=== PATIENT | female | born 1940 | race Caucasian/White ===

== ENCOUNTER 2017-01-01 18:53 | Inpatient (IN) | payer MEDICARE, OTHER ==
[~2017-01-01] VITALS: Ht 154.9 cm; Wt 89.2 kg
[~2017-01-01 18:53] MED LIST: ATEN-51; CRES10
[2017-01-01] MEDS ORDERED: ASPIRIN 325 MG TAB PO STA (18:55)
--- NOTE | 2017-01-01 19:36 | RADRPT ---
PROCEDURE: XR Chest. CLINICAL INDICATION: Weakness. Shortness of breath. TECHNIQUE: Single frontal view. COMPARISON: 11/19/2014. FINDINGS: The lungs are clear. The heart is enlarged. There is calcification in the aorta consistent with atherosclerosis. There is no pleural effusion. There is no pneumothorax. IMPRESSION: 1. Cardiomegaly and atherosclerosis. 2. Clear lungs. RPTAT: QQ .Beck Valdez MD, MD Date Time Electronically viewed and signed by .Beck Valdez MD, on 01/01/2017 19:36 .R/
[2017-01-01 19:38] LABS: BASOPHILS % 0.4 % (0.0-2.0); EOSINOPHILS # 0.1 10^3/ul (0.0-0.5); EOSINOPHILS % 0.9 % (0.0-7.0); HEMATOCRIT 35.3 % (37.0-47.0); HEMOGLOBIN 11.9 g/dl (12.0-16.0); LYMPHOCYTES # 1.8 10^3/ul (0.8-2.9); LYMPHOCYTES % 20.5 % (15.0-51.0); MEAN CORPUSCULAR HEMOGLOBIN 30.2 pg (29.0-33.0); MEAN CORPUSCULAR HGB CONC 33.7 g/dl (32.0-37.0); MEAN CORPUSCULAR VOLUME 89.6 fl (82.0-101.0); MEAN PLATELET VOLUME 10.5 fl (7.4-10.4); MONOCYTE # 0.8 10^3/ul (0.3-0.9); MONOCYTES % 8.4 % (0.0-11.0); NEUTROPHIL # 6.2 10^3/ul (1.6-7.5); NEUTROPHILS % 69.5 % (39.0-77.0); PLATELET COUNT 224 10^3/UL (140-415); RED BLOOD COUNT 3.94 10^6/ul (4.20-5.40); WHITE BLOOD COUNT 8.9 10^3/ul (4.8-10.8)
--- NOTE | 2017-01-01 19:43 | RADRPT ---
PROCEDURE: CT Brain without contrast. CLINICAL INDICATION: Right-sided weakness. TECHNIQUE: A CT of the brain without contrast was performed utilizing axial sections from the skul l base through the vertex. The patient was scanned without intravenous contrast enhancement. Sagitta l and coronal reformatted images were obtained using the data from the axial images. Total exam DLP is 720.23 mGy-cm. CTDIvol is 43.05 mGy. One or more of the following dose reduction techniques we re used: Automated exposure control, adjustment of the mA and/or kV according to patient size, use o f iterative reconstruction technique. COMPARISON: 11/19/2014. FINDINGS: There is normal crum-white matter differentiation. There is mild enlargement of the ventricles and subarachnoid spaces consistent with atrophy. There is a chronic left cerebral convexity subdural hematoma measuring 9.6 x 1.6 x 9.1 cm in AP, tra nsverse, and craniocaudal dimensions. There are regions of acute hemorrhage within the chronic low attenuation fluid. There are multiple regions of septation. There is midline shift to the right me asuring 0.7 cm. The basal cisterns are intact. There is no skull fracture or lytic lesion. IMPRESSION: 1. Mild atrophy. 2. Chronic left cerebral convexity subdural hematoma measuring 9.6 x 1.6 x 9.1 cm in AP, transverse , and craniocaudal dimensions. Small regions of acute hemorrhage are present within the chronic flu id. Multiple septations are also present. 3. Midline shift to the right measuring 0.7 cm. Call report: A call report of the findings was made to Dr. Macdonald on 01/01/2017 at 1940 hours. RPTAT: QQ .Beck Valdez MD, MD Date Time Electronically viewed and signed by .Beck Valdez MD, on 01/01/2017 19:42 .R/
[2017-01-01] MEDS ORDERED: ERGO500037 PO (19:51)
[2017-01-01 19:53] LABS: INR 0.94; PARTIAL THROMBOPLASTIN TIME 24.2 Sec (25.0-35.0); PROTIME 12.6 Sec (12.2-14.2)
[2017-01-01] MEDS ORDERED: SIMV40TA2 PO (19:53)
[2017-01-01] MEDS ORDERED: DONE10TA7 PO (19:53)
[2017-01-01] MEDS ORDERED: OXCA300T41 PO (19:54)
[2017-01-01] MEDS ORDERED: OXCA600T30 PO (19:54)
[2017-01-01] MEDS ORDERED: CALC-516 PO (19:55)
[2017-01-01] MEDS ORDERED: VALS160T20 PO (19:56)
[2017-01-01] MEDS ORDERED: ESCI5TAB10 PO (19:56)
[2017-01-01 20:02] LABS: ANION GAP 11 (8-16); BLOOD UREA NITROGEN 19 mg/dl (7-20); CALCIUM 9.3 mg/dl (8.4-10.2); CARBON DIOXIDE 29 mmol/L (21-31); CHLORIDE 101 mmol/L (97-110); CREATININE 0.87 mg/dl (0.44-1.00); GLUCOSE 96 mg/dl (70-220); POTASSIUM 4.3 mmol/L (3.5-5.1); SODIUM 137 mmol/L (135-144)
[2017-01-01 20:16] LABS: TROPONIN-I < 0.012 ng/ml (0.00-0.12)
[2017-01-01 20:47] VITALS: TEMP 97.8
--- NOTE | 2017-01-01 21:07 | ERA ---
ER Documentation Chief Complaint Date/Time DATE: 01/01/17 TIME: 21:04 Chief Complaint right arm weak, slightly slurred speech, dragging feet since yesterday HPI Patient is a 76-year-old female with previous stroke and hypertension who presents with weakness of the right arm. The patient was brought in by ambulance. She could not lift her right arm yesterday while eating. Today the weakness was worse. She had a fall on November 17 and had a subdural hemorrhage at that time. She has no pain. The family does say that she has slurred speech. She had no new falls. She does have difficulty walking. She does not take blood thinning medicines at this time. Her last meal was at 1 PM. ROS All systems reviewed and are negative except as per history of present illness. Medications Home Meds Reported Medications Escitalopram Oxalate* (Escitalopram Oxalate*) 5 Mg Tablet, 5 MG PO DAILY, #30 TAB 01/01/17 Valsartan* (Diovan*) 160 Mg Tablet, 160 MG PO DAILY, TAB 01/01/17 Calcium Carbonate/Vitamin D3 ([place] SHE[place] CALCIUM TABLET) 1 Each Tablet, 1 EACH PO BID, TAB 01/01/17 Oxcarbazepine* (Oxcarbazepine*) 600 Mg Tablet, 600 MG PO BID, TAB 01/01/17 Oxcarbazepine* (Oxcarbazepine*) 300 Mg Tablet, 300 MG PO PRN Y for NEEDED, TAB 01/01/17 Donepezil* (Donepezil*) 10 Mg Tablet, 10 MG PO DAILY, #30 TAB 01/01/17 Simvastatin* (Zocor*) 40 Mg Tablet, 40 MG PO DAILY, #30 TAB 01/01/17 Ergocalciferol (Vitamin D2) (VITAMIN D2) 50,000 Unit Capsule, 90744 UNIT PO Q30D , CAP 01/01/17 Discontinued Reported Medications Rosuvastatin Calcium* (Crestor*) 10 Mg Tablet 05/07/10 Atenolol* (Atenolol*) 25 Mg Tablet 05/07/10 Allergies Allergies: Coded Allergies: No Known Drug Allergy (Verified Allergy, Mild, 01/01/17) PMhx/Soc History of Surgery: Yes (hernia) Anesthesia Reaction: No Hx Neurological Disorder: Yes (epilepsy, seizure) Hx Respiratory Disorders: No Hx Cardiac Disorders: Yes (HYPERTENSION, HIGH CHOLESTEROL, ) Hx Psychiatric Problems: No Hx Miscellaneous Medical Probl: No Hx Alcohol Use: No Hx Substance Use: No Hx Tobacco Use: No Smoking Status: Never smoker FmHx Family History: No diabetes Physical Exam Vitals Vital Signs Date Time Temp Pulse Resp B/P Pulse Ox O2 Delivery O2 Flow Rate FiO2 01/01/17 20:47 97.8 55 20 165/75 98 Room Air 01/01/17 19:05 98.2 59 18 182/77 96 Physical Exam Const: No acute distress Head: Atraumatic Eyes: Normal Conjunctiva ENT: Normal External Ears, Nose and Mouth. Neck: Full range of motion..~ No meningismus. Resp: Clear to auscultation bilaterally Cardio: Regular rate and rhythm, no murmurs Abd: Soft, non tender, non distended. Normal bowel sounds Skin: No petechiae or rashes Back: No midline or flank tenderness Ext: No cyanosis, or edema Neur: Awake and alert, weakness of the right upper extremity when compared to the left, bilateral lower extremity equal in strength Psych: Normal Mood and Affect Result Diagram: 01/01/17192301/01/171923 Results 24 hrs Laboratory Tests Test 01/01/17 19:24 01/01/17 19:41 White Blood Count 8.910^3/ul Red Blood Count 3.9410^6/ul Hemoglobin 11.9g/dl Hematocrit 35.3% Mean Corpuscular Volume 89.6fl Mean Corpuscular Hemoglobin 30.2pg Mean Corpuscular Hemoglobin Concent 33.7g/dl Red Cell Distribution Width 13.0% Platelet Count 72538^3/UL Mean Platelet Volume 10.5fl Neutrophils % 69.5% Lymphocytes % 20.5% Monocytes % 8.4% Eosinophils % 0.9% Basophils % 0.4% Nucleated Red Blood Cells % 0.0/100WBC Neutrophils # 6.210^3/ul Lymphocytes # 1.810^3/ul Monocytes # 0.810^3/ul Eosinophils # 0.110^3/ul Basophils # 0.010^3/ul Nucleated Red Blood Cells # 0.010^3/ul Prothrombin Time 12.6Sec Prothrombin Time Ratio 1.0 INR International Normalized Ratio 0.94 Activated Partial Thromboplast Time 24.2Sec Sodium Level 137mmol/L Potassium Level 4.3mmol/L Chloride Level 101mmol/L Carbon Dioxide Level 29mmol/L Anion Gap 11 Blood Urea Nitrogen 19mg/dl Creatinine 0.87mg/dl Glucose Level 96mg/dl Hemoglobin A1c 5.6% Calcium Level 9.3mg/dl Troponin I < 0.012ng/ml Bedside Glucose 93mg/dL Current Medications Medications (Trade) Dose Ordered Sig/Aminata Route PRN Reason Start Time Stop Time Status Last Admin Dose Admin Aspirin (Aspirin) 325 mg ONCE STAT PO 01/01/17 18:55 01/01/17 19:40 DC Procedures/MDM EKG read by me: Rate/Rhythm: Regular rate and rhythm at a normal rate Intervals: Normal Impression: No evidence of ischemia or arrhythmia CT brain shows large acute on chronic left-sided subdural hemorrhage with mass- effect in 0.7 cm of midline shift per radiology. Patient is a 76-year-old female with acute on chronic subdural hemorrhage who presents with weakness. I believe her weakness is secondary to the mass-effect and midline shift due to the subdural hemorrhage. I spoke with Dr. Giraldo from neurosurgery who will take the patient to the operating room tonight. The patient will be admitted to the care of Dr. Taylor from the panel team to the intensive care unit. Correlation studies appear normal. At this point I doubt ischemic stroke or brain mass. Critical Care: Time: 35 minutes excluding all billable procedures. Treatments/Evaluations: Close monitoring and treatment of unstable vital signs, cardiorespiratory, and neurologic status, while maintaining tight balance of fluid, respiratory, and cardiac interventions. Departure Diagnosis: Primary Impression: SDH (subdural hematoma) Additional Impression: Acute weakness Condition: Critical JOHN PRICE MD Jan 01, 2017 21:06
[2017-01-01] MEDS ORDERED: THROMBIN 5000 UNIT VIAL ONE (21:11)
[2017-01-01] MEDS ORDERED: GELATIN SIZE 100 SPONGE ONE (21:11)
[2017-01-01] MEDS ORDERED: BUPIVACAINE 0.5% (SDV) 30 ML INJ ONE (21:20)
[2017-01-01] MEDS ORDERED: LIDOCAINE 2%/EPI 30 ML INJ ONE (21:23)
[2017-01-01] MEDS ORDERED: FENTAnyl 50 MCG/ML VIAL IV PRN ×3 (21:30)
[2017-01-01] MEDS ORDERED: MEPERIDINE 25 MG INJ IV PRN (21:30)
[2017-01-01] MEDS ORDERED: DEXAMETHASONE 4 MG/ML 1 ML INJ ONE (21:30)
[2017-01-01] MEDS ORDERED: HYDROmorphONE (0.2 MG/ML) 10ML SYG IV PRN ×3 (21:30)
[2017-01-01] MEDS ORDERED: ROCURONIUM 50 MG INJ ONE (21:30)
[2017-01-01] MEDS ORDERED: MIDAZOLAM 1 MG/ML 2 ML INJ IV PRN (21:30)
[2017-01-01] MEDS ORDERED: ONDANSETRON 4 MG INJ ONE (21:30)
[2017-01-01] MEDS ORDERED: ONDANSETRON 4 MG INJ IV PRN (21:30)
[2017-01-01] MEDS ORDERED: FENTAnyl 250MCG INJ ONE (21:30)
[2017-01-01] MEDS ORDERED: OXYCODONE/ACETAMINOPHEN (5/325) TAB PO PRN ×2 (21:30)
[2017-01-01] MEDS ORDERED: TRIMETHOBENZAMIDE 100 MG/ML VIAL IM PRN (21:30)
[2017-01-01] MEDS ORDERED: EPHEDrine SULFATE 50 MG/5 ML SYG ONE (21:30)
[2017-01-01] MEDS ORDERED: MIDAZOLAM 1 MG/ML 2 ML INJ ONE (21:30)
[2017-01-01] MEDS ORDERED: SUGAMMADEX SODIUM 200 MG/2 ML VIAL IV ONE (21:30)
[2017-01-01] MEDS ORDERED: DIPHENHYDRAMINE 50 MG INJ IV PRN (21:30)
[2017-01-01] MEDS ORDERED: LABETALOL HCL 20MG INJ IV PRN (21:30)
[2017-01-01] MEDS ORDERED: PROPOFOL 200 MG INJ ONE (21:30)
[2017-01-01] MEDS ORDERED: hydrALAzine 20 MG INJ IV PRN (21:30)
[2017-01-01] MEDS ORDERED: EPHEDrine SULFATE 50 MG/5 ML SYG IV PRN (21:30)
[2017-01-01] MEDS ORDERED: CEFAZOLIN 1 GM INJ ONE (21:30)
[2017-01-01] MEDS: SOD CHLORIDE 0.9% 1,000 ML IV SCH (21:49)
[2017-01-01] MEDS ORDERED: ACETAMINOPHEN 650MG/20.3ML CUP PO PRN (22:00)
[2017-01-01] MEDS ORDERED: ACETAMINOPHEN 650 MG SUPP PR PRN (22:00)
[2017-01-01] MEDS ORDERED: HYDROmorphONE 1 MG/ML SYG IV PRN (22:00)
--- NOTE | 2017-01-01 22:21 | HP ---
Date/Time of Note Date/Time of Note DATE: 01/01/17 TIME: 22:18 Assessment/Plan VTE Prophylaxis VTE Prophylaxis Intervention: SCD's Assessment/Plan Chief Complaint/Hosp Course This is a 68-year-old female being admitted to the ICU floor for: 1: acute on chronic subural hematoma:CT scan shows c: Hronic left cerebral convexity subdural hematoma measuring 9.6 x 1.6 x 9.1 cm in AP, transverse, and craniocaudal dimensions. Small regions of acute hemorrhage are present within the chronic fluid. Multiple septations are also present. Midline shift to the right measuring 0.7 cm. At the current time based on the patient's CT scan as well as her physical examination neurosurgery was consulted. Neurosurgery will be coming in for a surgical intervention.. Current time keep the patient n.p.o. #2 hypertension: At the current time we will keep the patient's blood pressure when in the 140s-160 systolic range await further recommendations from neurosurgery regarding blood pressure management. #3 Alzheimer's: Continue donepezil #4 depression: Continue SSRI #5 DVT GI prophylaxis: SCDs, Protonix Further treatment strategy will be implemented as per the clinical course Greater than 40 minutes was spent on the history and physical and assessment and plan this patient Problems: HPI/ROS Admit Date/Time Admit Date/Time Hx of Present Illness chief complaint: right sided weakness, slurred speech Patient is a 76-year-old female with previous stroke and hypertension who presents with weakness of the right arm. The patient was brought in by ambulance. She could not lift her right arm yesterday while eating. Today the weakness was worse. She had a fall on November 17 and had a subdural hemorrhage at that time. She has no pain. The family does say that she has slurred speech. She had no new falls. She does have difficulty walking. She does not take blood thinning medicines at this time. Allergies: NKDA Medications: See YUMIKO CAGE Const: As per HPI Eyes : No pain discharge or redness or change in visual acuity ENT: No pain, sore throat, congestion, congestion, dysphagia or discharge Respiratory: No shortness of breath, cough, sputum, wheezing, or pleuritic pain Cardiovascular: No chest pain, palpitation, PND, or edema GI : no change in appetite, abdominal pain, nausea, vomiting, diarrhea, constipation, or change in the color his stool Genitourinary: No dysuria, hematuria, flank pain , discharge or CVA tenderness Musculoskeletal: As per HPI Skin: No rash, bruising or hives Neuro: As per HPI Endocrine: No polyuria, polydipsia, temperature intolerance Psych: No hallucination, depression, anxiety or suicidal ideation PMH/Family/Social Past Medical History htn, hematoma, petite mal seizures, Past Surgical History heart monitor/loop recorder?, hernia repair Family History Significant Family History: cancer (pancreatic CA: mom, Liver CA: dad) Social History Alcohol Use: none Smoking Status: Never smoker Drug Use: none Exam/Review of Systems Vital Signs Vitals Vital Signs Date Time Temp Pulse Resp B/P Pulse Ox O2 Delivery O2 Flow Rate FiO2 01/01/17 20:47 97.8 55 20 165/75 98 Room Air Exam Exam General: Patient is lying in bed in no acute distress HEENT: Atraumatic, normocephalic. The pupils are equal, round and reactive. Extraocular motor are intact Neck: Supple with full range of motion. No rigidity or meningismus Chest: Nontender Lungs: Clear to auscultation bilaterally no crackles rales or wheezing Heart: Normal S1-S2, Regular rhythm and rate. No murmur, S3, or S4 Abdomen: Soft , nontender, nondistended , bowel sounds are present. No guarding no rebound tenderness , No masses or organomegaly. No costovertebral temporal angle mass Extremities: Weakness of the right upper extremity when compared to the left, equals strength bilateral lower extremities Neurologic: Normal mental status, mild slurring of speech, cranial nerves II through XII are intact, motor and sensory are intact, no focal weakness Additional Comments PROCEDURE: CT Brain without contrast. CLINICAL INDICATION: Right-sided weakness. TECHNIQUE: A CT of the brain without contrast was performed utilizing axial sections from the skull base through the vertex. The patient was scanned without intravenous contrast enhancement. Sagittal and coronal reformatted images were obtained using the data from the axial images. Total exam DLP is 720.23 mGy-cm. CTDIvol is 43.05 mGy. One or more of the following dose reduction techniques were used: Automated exposure control, adjustment of the mA and/or kV according to patient size, use of iterative reconstruction technique. COMPARISON: 11/19/2014. FINDINGS: There is normal crum-white matter differentiation. There is mild enlargement of the ventricles and subarachnoid spaces consistent with atrophy. There is a chronic left cerebral convexity subdural hematoma measuring 9.6 x 1.6 x 9.1 cm in AP, transverse, and craniocaudal dimensions. There are regions of acute hemorrhage within the chronic low attenuation fluid. There are multiple regions of septation. There is midline shift to the right measuring 0.7 cm. The basal cisterns are intact. There is no skull fracture or lytic lesion. IMPRESSION: 1. Mild atrophy. 2. Chronic left cerebral convexity subdural hematoma measuring 9.6 x 1.6 x 9.1 cm in AP, transverse, and craniocaudal dimensions. Small regions of acute hemorrhage are present within the chronic fluid. Multiple septations are also present. 3. Midline shift to the right measuring 0.7 cm. Call report: A call report of the findings was made to Dr. Macdonald on 2016 at 1940 hours. RPTAT: QQ .Beck Valdez MD, MD Date Time Electronically viewed and signed by .Beck Valdez MD, on 01/01/2017 19:42 PROCEDURE: XR Chest. CLINICAL INDICATION: Weakness. Shortness of breath. TECHNIQUE: Single frontal view. COMPARISON: 11/19/2014. FINDINGS: The lungs are clear. The heart is enlarged. There is calcification in the aorta consistent with atherosclerosis. There is no pleural effusion. There is no pneumothorax. IMPRESSION: 1. Cardiomegaly and atherosclerosis. 2. Clear lungs. RPTAT: QQ .Beck Valdez MD, MD Date Time Electronically viewed and signed by .Beck Valdez MD, MD on 01/01/2017 19:36 Labs Result Diagram: 01/01/17192301/01/171923 Medications Medications Current Medications Sodium Chloride (NS) 1,000 ml @ 80 mls/hr [id number] IV ; Start 01/01/17 at 21:49 Acetaminophen (Tylenol Liquid) 650 mg Q6H PRN PO PAIN LEVEL 1-3 OR FEVER; Start 01/01/17 at 22:00 Acetaminophen (Tylenol Supp) 650 mg Q4H PRN [place] PAIN LEVEL 1-3 OR FEVER; Start 01/01/17 at 22:00 Hydromorphone HCl (Dilaudid) 0.5 mg Q4H PRN IV PAIN LEVEL 7-10; Start 01/01/17 at 22:00 Pantoprazole (Protonix Iv) 40 mg DAILY@06 IV ; Start 01/02/17 at 06:00 FIDEL BAKER Jan 01, 2017 22:21
[2017-01-01] MEDS ORDERED: BUPIVACAINE 0.5%/EPI (SDV) 10 ML INJ ONE (22:24)
[2017-01-01] MEDS ORDERED: POLYMYXIN/BACITRACIN 1L IRRIG ONE (22:48)
[2017-01-01] MEDS ORDERED: LEVETIRACETAM 500 MG (PMX) 100 ML IVPB ONE (23:00)
[2017-01-01] MEDS ORDERED: BACITRACIN/POLYMYXIN 28.35 GM OINT TOP ONE (23:19)
[2017-01-02] VITALS (36 sets, daily range): BP systolic 65–165; BP diastolic 47–92; PULSE 52–89; RESP 14–29; Ht 154.9 cm; Wt 89.2 kg
[2017-01-02] MEDS ORDERED: HYDROmorphONE 1 MG/ML SYG IV PRN
[2017-01-02] MEDS ORDERED: MEPERIDINE 25 MG INJ IV PRN
[2017-01-02] MEDS ORDERED: MIDAZOLAM 1 MG/ML 2 ML INJ IV PRN
[2017-01-02] MEDS ORDERED: FENTAnyl 50 MCG/ML VIAL IV PRN ×3
[2017-01-02] MEDS ORDERED: DIPHENHYDRAMINE 50 MG INJ IV PRN
[2017-01-02] MEDS ORDERED: TRIMETHOBENZAMIDE 100 MG/ML VIAL IM PRN
[2017-01-02] MEDS ORDERED: LABETALOL HCL 20MG INJ IV PRN
[2017-01-02] MEDS ORDERED: NALOXONE (0.4 MG/ML) INJ IV PRN
[2017-01-02] MEDS ORDERED: ONDANSETRON 4 MG INJ IV PRN ×2
[2017-01-02] MEDS ORDERED: EPHEDrine SULFATE 50 MG/5 ML SYG IV PRN
--- NOTE | 2017-01-02 00:06 | OPR ---
Date/Time of Note Date/Time of Note DATE: 01/02/17 TIME: 00:04 Operative Report Preoperative Diagnosis left frontoparietal acute on chronic SDH Postoperative Diagnosis Same As Above Operation/Procedure Performed Left Frontal and parietal burhole craniectomies for evacuation of subdural hematoma Surgeon: LAURA CONDE MD Anesthesia: general Estimated Blood Loss: 10 - 50 ml's Specimens None Grafts/Implants None Complications: None LAURA CONDE MD Jan 02, 2017 00:06
[2017-01-02] MEDS ORDERED: POLYMYXIN/BACITRACIN 1L IRRIG ONE (00:20)
[2017-01-02] MEDS: hydrALAzine 20 MG INJ IV PRN (00:28)
--- NOTE | 2017-01-02 01:02 | RADRPT ---
PROCEDURE: CT brain without contrast. CLINICAL INDICATION: Intracranial hemorrhage, follow-up. TECHNIQUE: CT scan of the brain was performed on a multi-detector high-resolution CT scanner. Co ntiguous axial images were obtained from the skull base to the vertex without intravenous contrast. Coronal and sagittal reformatted images were also obtained. Images were reviewed on the PACS works tation. One or more of the following dose reduction techniques were used: - Automated exposure control. - Adjustment of the mA and/or kV according to patient size. - Use of iterative reconstruction technique. Exam CTD/vol = 45.01 mGy. Total exam DLP = 810.25 mGy-cm. COMPARISON: 01/01/2017. FINDINGS: There is interval two left-sided adela holes and placement of a subdural drain through the left poste rior frontal adela hole extending to the left tentorium. There is partial evacuation of left-sided s ubdural hematoma with residual mild extra-axial hemorrhage, fluid and air along the left cerebral he misphere which now measures up to 8 mm in thickness. There is decreased mass effect and mild midline shift to the right which now measures 4 mm. The ventricles and cortical sulci are prominent consist ent with mild age related volume loss. There are patchy areas of low attenuation within the periven tricular and subcortical white matter consistent with mild chronic ischemic changes secondary to sma ll vessel disease. There are atherosclerotic calcifications within bilateral distal internal caroti d arteries. Visualized paranasal sinuses and mastoid air cells are clear. IMPRESSION: Interval two left frontal adela holes and placement of subdural drain. There is partial evacuation of left-sided subdural hematoma with mild residual hemorrhage, fluid and air. There is decreased mass effect and mild midline shift to the right which now measures 4 mm. Mild age related volume loss and chronic ischemic white matter disease. Cerebral atherosclerosis. .Bridger Carmona MD, Date Time Electronically viewed and signed by .Bridger Carmona MD, MD on 01/02/2017 01:01 .T/
[2017-01-02 01:15] LABS: CALCIUM 9.1 mg/dl (8.4-10.2); CREATININE 0.72 mg/dl (0.44-1.00); POTASSIUM 3.7 mmol/L (3.5-5.1)
[2017-01-02] MEDS: D5-NS + KCL 20 MEQ 1,000 ML IV SCH ×3 (01:20→19:55)
[2017-01-02] MEDS: CEFAZOLIN 1 GM/50 ML (PMX) 50 ML IVPB SCH ×3 (01:20→16:06)
[2017-01-02] MEDS: HYDROCODONE/APAP (5/325) TAB PO PRN ×2 (04:59→12:52)
[2017-01-02] MEDS: PANTOPRAZOLE 40 MG INJ IV SCH (05:04)
[2017-01-02 05:57] LABS: ABNORMAL IP MESSAGE 1; BASOPHILS % 0.2 % (0.0-2.0); HEMATOCRIT 34.6 % (37.0-47.0); HEMOGLOBIN 11.3 g/dl (12.0-16.0); LYMPHOCYTES # 0.6 10^3/ul (0.8-2.9); LYMPHOCYTES % 5.4 % (15.0-51.0); MEAN CORPUSCULAR HEMOGLOBIN 29.5 pg (29.0-33.0); MEAN CORPUSCULAR HGB CONC 32.7 g/dl (32.0-37.0); MEAN CORPUSCULAR VOLUME 90.3 fl (82.0-101.0); MEAN PLATELET VOLUME 11.3 fl (7.4-10.4); MONOCYTE # 0.2 10^3/ul (0.3-0.9); MONOCYTES % 2.1 % (0.0-11.0); NEUTROPHIL # 9.9 10^3/ul (1.6-7.5); NEUTROPHILS % 91.7 % (39.0-77.0); PLATELET COUNT 204 10^3/UL (140-415); RED BLOOD COUNT 3.83 10^6/ul (4.20-5.40); RED CELL DISTRIBUTION WIDTH 13.2 % (11.5-14.5); WHITE BLOOD COUNT 10.8 10^3/ul (4.8-10.8)
[2017-01-02] MEDS ORDERED: PANTOPRAZOLE 40 MG INJ IV SCH (06:00)
[2017-01-02 06:55] LABS: ALBUMIN 3.7 g/dl (3.3-4.9); ALBUMIN/GLOBULIN RATIO 1.6; CALCIUM 8.5 mg/dl (8.4-10.2); CREATININE 0.7 mg/dl (0.44-1.00); POTASSIUM 3.9 mmol/L (3.5-5.1)
[2017-01-02 07:44] LABS: ADD SCAN DIFF NO
[2017-01-02] MEDS: LEVETIRACETAM 500 MG (PMX) 100 ML IVPB SCH ×2 (08:55→21:42)
[2017-01-02] MEDS: NEOMYC/POLYMYX/BACIT 30 GM OINT TOP SCH ×2 (08:56→21:43)
[2017-01-02] MEDS: OXCARBAZEPINE 300 MG TAB PO SCH ×2 (08:57→21:42)
[2017-01-02] MEDS: CALCIUM/VITAMIN D (250/125) TAB PO SCH ×2 (08:57→21:42)
[2017-01-02] MEDS: DONEPEZIL 10 MG TAB PO SCH (08:57)
[2017-01-02] MEDS: VALSARTAN 160 MG TAB PO SCH (08:57)
[2017-01-02] MEDS: ESCITALOPRAM 10 MG TAB PO SCH (08:57)
[2017-01-02] MEDS ORDERED: ERGOCALCIFEROL 50,000 UNIT CAP PO SCH (09:00)
--- NOTE | 2017-01-02 09:44 | PN ---
Date/Time of Note Date/Time of Note DATE: 01/02/17 TIME: 09:38 Assessment/Plan VTE Prophylaxis VTE Prophylaxis Intervention: SCD's Lines/Catheters IV Catheter Type (from Nrs): Peripheral IV Urinary Cath still in place: Yes Reason Cath still needed: urinary retention Assessment/Plan Chief Complaint/Hosp Course A/P: 68-year-old female being admitted to the ICU floor for: 1: acute on chronic subural hematoma - initial CT scan showed chronic left cerebral convexity subdural hematoma measuring 9.6 x 1.6 x 9.1 cm in AP, transverse, and craniocaudal dimensions. Small regions of acute hemorrhage are present within the chronic fluid. Multiple septations are also present. Midline shift to the right measuring 0.7 cm. Pt s/p left frontal and parietal burhole craniectomies for evacuation of subdural hematoma early this AM, has less right sided weakness now. - f/u Neurosurgery rec's, monitor left sided head drain - Current time keep the patient n.p.o., f/u ST eval - continue Neuro check's, monitor bp #2 hypertension - again - current time we will keep the patient's blood pressure when in the 140s-160 systolic range await further recommendations from neurosurgery regarding blood pressure management. #3 Alzheimer's: Continue donepezil #4 depression: Continue SSRI #5 DVT GI prophylaxis: SCDs, Protonix Further treatment strategy will be implemented as per the clinical course Critical care time today = 40 minutes Problems: Subjective 24 Hr Interval Summary Free Text/Dictation Pt underwent left frontal and parietal burhole craniectomies for evacuation of subdural hematoma. Presently getting ST eval. Less Right sided weakness symptoms. Exam/Review of Systems Vital Signs Vitals Vital Signs Date Time Temp Pulse Resp B/P Pulse Ox O2 Delivery O2 Flow Rate FiO2 01/02/17 08:00 68 01/02/17 06:00 16 121/54 93 Nasal Cannula 6.0 01/02/17 04:00 96.8 Intake and Output 01/01/17 01/01/17 01/02/17 15:00 23:00 07:00 Intake Total 2630 ml Output Total 879 ml Balance 1751 ml Exam General: Patient is lying in bed in no acute distress, ST and family at bedside HEENT: Atraumatic, normocephalic. The pupils are equal, round and reactive. Extraocular motor are intact, left sided head drain in place Neck: Supple with full range of motion. No rigidity or meningismus Lungs: Clear to auscultation bilaterally no crackles rales or wheezing Heart: Normal S1-S2, Regular rhythm and rate. No murmur, S3, or S4 Abdomen: Soft , nontender, nondistended , bowel sounds are present. No guarding no rebound tenderness , No masses or organomegaly. No costovertebral temporal angle mass Extremities: less weakness of the right upper extremity when compared to the left, equals strength bilateral lower extremities Neurologic: Normal mental status, mild slurring of speech, cranial nerves II through XII are intact, motor and sensory are intact, no focal weakness Results Result Diagram: 01/02/17 0445 01/02/17 0445 Results 24 hrs Laboratory Tests Test 01/01/17 19:24 01/01/17 19:41 01/02/17 04:45 White Blood Count 8.9 10.8 # Red Blood Count 3.94 L 3.83 L Hemoglobin 11.9 L 11.3 L Hematocrit 35.3 L 34.6 L Mean Corpuscular Volume 89.6 90.3 Mean Corpuscular Hemoglobin 30.2 29.5 Mean Corpuscular Hemoglobin Concent 33.7 32.7 Red Cell Distribution Width 13.0 13.2 Platelet Count 224 204 Mean Platelet Volume 10.5 H 11.3 H Neutrophils % 69.5 91.7 H Lymphocytes % 20.5 5.4 L Monocytes % 8.4 2.1 Eosinophils % 0.9 0.0 Basophils % 0.4 0.2 Nucleated Red Blood Cells % 0.0 0.0 Neutrophils # 6.2 9.9 H Lymphocytes # 1.8 0.6 L Monocytes # 0.8 0.2 L Eosinophils # 0.1 0.0 Basophils # 0.0 0.0 Nucleated Red Blood Cells # 0.0 0.0 Prothrombin Time 12.6 Prothrombin Time Ratio 1.0 INR International Normalized Ratio 0.94 Activated Partial Thromboplast Time 24.2 L Sodium Level 137 134 L Potassium Level 4.3 3.9 Chloride Level 101 102 Carbon Dioxide Level 29 26 Anion Gap 11 10 Blood Urea Nitrogen 19 15 Creatinine 0.87 0.70 Glucose Level 96 # 199 # Hemoglobin A1c 5.6 Calcium Level 9.3 8.5 Troponin I < 0.012 Bedside Glucose 93 Total Bilirubin 0.0 L Direct Bilirubin 0.00 Indirect Bilirubin 0.0 Aspartate Amino Transf (AST/SGOT) 17 Alanine Aminotransferase (ALT/SGPT) 24 Alkaline Phosphatase 84 Total Protein 6.0 L Albumin 3.7 Globulin 2.30 Albumin/Globulin Ratio 1.60 Medications Medications Current Medications Sodium Chloride (NS) 1,000 ml @ 80 mls/hr [id number] IV ; Start 01/01/17 at 21:49 Acetaminophen (Tylenol Liquid) 650 mg Q6H PRN PO PAIN LEVEL 1-3 OR FEVER; Start 01/01/17 at 22:00 Acetaminophen (Tylenol Supp) 650 mg Q4H PRN [place] PAIN LEVEL 1-3 OR FEVER; Start 01/01/17 at 22:00 Hydromorphone HCl (Dilaudid) 0.5 mg Q4H PRN IV PAIN LEVEL 7-10; Start 01/01/17 at 22:00 Pantoprazole (Protonix Iv) 40 mg DAILY@06 IV Last administered on 01/02/17 05: 04; Admin Dose 40 MG; Start 01/02/17 at 06:00 Acetaminophen/ Hydrocodone Bitart ([place] (5/325)) 1 tab Q4H PRN PO PAIN LEVEL 1 -5 Last administered on 01/02/17 04:59; Admin Dose 1 TAB; Start 01/02/17 at 00: 00 Hydromorphone HCl 0.2 mg 0.2 mg Q1H PRN IV BREAKTHROUGH PAIN; Start 01/02/17 at 00:00 Cefazolin Sodium (Ancef 1 Gm/50 ml (Pmx)) 50 ml @ 100 mls/hr Q8H IVPB Last administered on 01/02/17 08:55; Admin Dose 100 MLS/HR; Start 01/02/17 at 00:00 ; Stop 01/02/17 at 16:29 Ondansetron HCl (Zofran Inj) 4 mg Q6H PRN IV NAUSEA AND/OR VOMITING; Start at 00:00 Naloxone HCl 0.2 mg 0.2 mg Q2M PRN IV RR 8 BREATHS/MIN OR LESS; Start 01/02/17 at 00:00 Potassium Chloride/Dextrose/ Sod Cl (D5-NS + KCl 20 Meq) 1,000 ml @ 100 mls/hr Q10H IV Last administered on 01/02/17 01:20; Admin Dose 100 MLS/HR; Start at 00:00 Neomycin/ Polymyxin/ Bacitracin 1 applic 1 applic Q12 TOP Last administered on 01/02/17 08:56; Admin Dose 1 APPLIC; Start 01/02/17 at 09:00 Levetiracetam (Keppra 500 Mg/ 100ml (Pmx)) 100 ml @ 400 mls/hr Q12 IVPB Last administered on 01/02/17 08:55; Admin Dose 400 MLS/HR; Start 01/02/17 at 09:00 Donepezil HCl (Aricept) 10 mg DAILY PO Last administered on 01/02/17 08:57; Admin Dose 10 MG; Start 01/02/17 at 09:00 Ergocalciferol (Drisdol) 50,000 unit Q30D PO Last administered on 01/02/17 08: 57; Admin Dose 50,000 UNIT; Start 01/02/17 at 09:00 Escitalopram Oxalate (Lexapro) 5 mg DAILY PO Last administered on 01/02/17 08: 57; Admin Dose 5 MG; Start 01/02/17 at 09:00 Oxcarbazepine (Trileptal) 600 mg BID PO Last administered on 01/02/17 08:57; Admin Dose 600 MG; Start 01/02/17 at 09:00 Valsartan (Diovan) 160 mg DAILY PO ; Start 01/02/17 at 09:00 Calcium/Vitamin D (Oyster Shell/ Vit-D (250/125)) 1 tab BID PO Last administered on 01/02/17 08:57; Admin Dose 1 TAB; Start 01/02/17 at 09:00 Atorvastatin Calcium (Lipitor) 20 mg DAILY@21 PO ; Start 01/02/17 at 21:00 Hydralazine HCl (Apresoline) 10 mg Q6 PRN IV keep sbp < 160 Last administered on 01/02/17 00:28; Admin Dose 10 MG; Start 01/02/17 at 00:30 DIETER ANG 30, 2017 09:44
[2017-01-02] MEDS: SOD CHLORIDE 0.9% 1,000 ML IV SCH ×2 (10:19→22:46)
[2017-01-02] MEDS: ATORVASTATIN 20 MG TAB PO SCH (21:42)
[2017-01-03] VITALS (27 sets, daily range): BP systolic 118–160; BP diastolic 48–72; PULSE 55–85; RESP 14–23
[2017-01-03 01:41] LABS: ADD UMIC NO; UR ASCORBIC ACID NEGATIVE (NEGATIVE); UR BILIRUBIN (Dip) NEGATIVE (NEGATIVE); UR BLOOD (Dip) NEGATIVE (NEGATIVE); UR CLARITY CLEAR (CLEAR); UR COLOR YELLOW (YELLOW); UR GLUCOSE (Dip) NEGATIVE (NEGATIVE); UR KETONES (Dip) NEGATIVE (NEGATIVE); UR LEUKOCYTE ESTERASE (Dip) NEGATIVE Leu/ul (NEGATIVE); UR NITRITE (Dip) NEGATIVE (NEGATIVE); UR SPECIFIC GRAVITY (Dip) 1.015 (1.003-1.030); UR TOTAL PROTEIN (Dip) NEGATIVE (NEGATIVE); UR UROBILINOGEN (Dip) NEGATIVE (NEGATIVE)
[2017-01-03 02:08] LABS: BARBITURATES Negative (NEGATIVE); BENZODIAZEPINES Negative (NEGATIVE); CANNABINOIDS Negative (NEGATIVE); COCAINE Negative (NEGATIVE); OPIATES Positive (NEGATIVE)
[2017-01-03 05:10] LABS: BASOPHILS % 0.2 % (0.0-2.0); EOSINOPHILS % 0.3 % (0.0-7.0); HEMATOCRIT 32.9 % (37.0-47.0); HEMOGLOBIN 10.6 g/dl (12.0-16.0); MEAN CORPUSCULAR HEMOGLOBIN 29.4 pg (29.0-33.0); MEAN CORPUSCULAR HGB CONC 32.2 g/dl (32.0-37.0); MEAN CORPUSCULAR VOLUME 91.4 fl (82.0-101.0); MEAN PLATELET VOLUME 10.7 fl (7.4-10.4); MONOCYTES % 8.9 % (0.0-11.0); NEUTROPHIL # 8.9 10^3/ul (1.6-7.5); NEUTROPHILS % 81.1 % (39.0-77.0); PLATELET COUNT 183 10^3/UL (140-415); RED CELL DISTRIBUTION WIDTH 13.3 % (11.5-14.5)
[2017-01-03 05:17] LABS: ADD SCAN DIFF NO
[2017-01-03 05:35] LABS: CREATININE 0.63 mg/dl (0.44-1.00); POTASSIUM 4.4 mmol/L (3.5-5.1)
[2017-01-03] MEDS: D5-NS + KCL 20 MEQ 1,000 ML IV SCH ×4 (05:52→23:36)
[2017-01-03] MEDS: PANTOPRAZOLE 40 MG INJ IV SCH (05:52)
[2017-01-03] MEDS: HYDROCODONE/APAP (5/325) TAB PO PRN ×2 (07:37→20:37)
[2017-01-03] MEDS: DONEPEZIL 10 MG TAB PO SCH (08:11)
[2017-01-03] MEDS: CALCIUM/VITAMIN D (250/125) TAB PO SCH ×2 (08:12→20:27)
[2017-01-03] MEDS: VALSARTAN 160 MG TAB PO SCH (08:12)
[2017-01-03] MEDS: ESCITALOPRAM 10 MG TAB PO SCH (08:12)
[2017-01-03] MEDS: OXCARBAZEPINE 300 MG TAB PO SCH ×2 (08:12→20:27)
[2017-01-03] MEDS: NEOMYC/POLYMYX/BACIT 30 GM OINT TOP SCH ×2 (08:12→20:28)
[2017-01-03] MEDS: LEVETIRACETAM 500 MG (PMX) 100 ML IVPB SCH ×2 (08:16→20:27)
[2017-01-03] MEDS: SOD CHLORIDE 0.9% 1,000 ML IV SCH (11:19)
--- NOTE | 2017-01-03 17:41 | RADRPT ---
PROCEDURE: CT Brain without contrast. CLINICAL INDICATION: Follow-up subdural TECHNIQUE: A CT of the brain was performed on a [employer] 64-slice CT scanner utilizing axial imaging from the skull base through the vertex without IV contrast. Multiplanar reformatted images were made. Images were reviewed on a PACS workstation. The CTDIvol is 44.90 mGy and the DLP is 720 .23 mGycm. One of the following 3 dose reduction techniques were used: Automated exposure control; adjustment of the mA and/or kV according to patient size; or use of iterative reconstruction technique. COMPARISON: CT brain 01/02/2017 FINDINGS: The visualized scalp and calvarium demonstrates bilateral frontal parietal scalp hematomas and sever al left frontal craniectomy is or burrholes. Interval decrease in the pneumocephalus is noted when compared with prior study. Interval removal of the previously noted extra-axial drain has occurred in the interim. Small left holohemispheric fluid collection remains measuring a maximum of 5 mm. In terval decreased mass effect is noted with left to right midline shift now measuring 2 mm. While mi ld persistent left parietal and posterior frontal sulcal effacement is present. The ventricles are age appropriate. Mild diffuse volume loss is noted. Mild decreased attenuation is present in the b ilateral subcortical white matter, centrum semiovale and periventricular white matter compatible wit h mild chronic microvascular ischemic disease. A punctate focus of hypo density is noted in the rig ht basal ganglia compatible with a chronic right basal ganglia lacunar infarct. Mild vascular calcifications are present of the intracranial internal carotid arteries. The visualized bilateral orbits are normal. The bilateral paranasal sinuses, mastoid air cells, and middle ear cavities are clear. IMPRESSION: 1. Status post interval removal of left subdural drain and decrease in the left holohemispheric par tially evacuated 5 mm subdural hematoma. 2. 3 left frontal adela holes are craniectomy changes with residual decrease in pneumocephalus. 3. Interval decrease in left to right midline shift now measuring 2 mm. 4. Mild chronic microvascular ischemic disease and chronic right basal ganglia lacunar infarct. 5. Mild diffuse volume loss and atherosclerotic vascular disease 6. Bilateral frontal parietal scalp hematoma RPTAT: HDC .Mira Ordoñez MD, MD Date Time Electronically viewed and signed by .Mira Ordoñez MD, MD on 01/03/2017 17:40 .C/
--- NOTE | 2017-01-03 19:12 | PN ---
Date/Time of Note Date/Time of Note DATE: 01/03/17 TIME: 19:11 Assessment/Plan VTE Prophylaxis VTE Prophylaxis Intervention: SCD's Lines/Catheters IV [facility] Type (from [facility]): Peripheral IV Urinary Cath still in place: Yes Reason Cath still needed: urinary retention Assessment/Plan Assessment/Plan 1: acute on chronic subural hematoma - initial CT scan showed chronic left cerebral convexity subdural hematoma measuring 9.6 x 1.6 x 9.1 cm in AP, transverse, and craniocaudal dimensions. Small regions of acute hemorrhage are present within the chronic fluid. Multiple septations are also present. Midline shift to the right measuring 0.7 cm. Pt s/p left frontal and parietal burhole craniectomies for evacuation of subdural hematoma early this AM, has less right sided weakness now. - f/u Neurosurgery rec's, monitor left sided head drain - Current time keep the patient n.p.o., f/u ST eval - continue Neuro check's, monitor bp #2 hypertension - again - current time we will keep the patient's blood pressure when in the 140s-160 systolic range await further recommendations from neurosurgery regarding blood pressure management. #3 Alzheimer's: Continue donepezil #4 depression: Continue SSRI #5 DVT GI prophylaxis: SCDs, Protonix Further treatment strategy will be implemented as per the clinical course Critical care time today = 40 minutes Exam/Review of Systems Vital Signs Vitals Vital Signs Date Time Temp Pulse Resp B/P Pulse Ox O2 Delivery O2 Flow Rate FiO2 01/03/17 16:39 65 01/03/17 16:00 98.5 20 140/68 96 Nasal Cannula 01/03/17 15:00 2.0 Intake and Output 01/02/17 01/02/17 01/03/17 15:00 23:00 07:00 Intake Total 1160 ml 370 ml 100 ml Output Total 411 ml 572 ml 660 ml Balance 749 ml -202 ml -560 ml Exam General: Patient is lying in bed in no acute distress, ST and family at bedside HEENT: Atraumatic, normocephalic. The pupils are equal, round and reactive. Extraocular motor are intact, left sided head drain in place Neck: Supple with full range of motion. No rigidity or meningismus Lungs: Clear to auscultation bilaterally no crackles rales or wheezing Heart: Normal S1-S2, Regular rhythm and rate. No murmur, S3, or S4 Abdomen: Soft , nontender, nondistended , bowel sounds are present. No guarding no rebound tenderness , No masses or organomegaly. No costovertebral temporal angle mass Extremities: less weakness of the right upper extremity when compared to the left, equals strength bilateral lower extremities Neurologic: Normal mental status, mild slurring of speech, cranial nerves II through XII are intact, motor and sensory are intact, no focal weakness Results Result Diagram: 01/03/175 01/03/17 042 Results 24 hrs Laboratory Tests Test 01/03/17 01:17 01/03/17 04:25 Urine Opiates Screen Positive Urine Barbiturates Negative Urine Amphetamines Screen Negative Urine Benzodiazepines Screen Negative Urine Cocaine Screen Negative Urine Cannabinoids Negative White Blood Count 11.0 H Red Blood Count 3.60 L Hemoglobin 10.6 L Hematocrit 32.9 L Mean Corpuscular Volume 91.4 Mean Corpuscular Hemoglobin 29.4 Mean Corpuscular Hemoglobin Concent 32.2 Red Cell Distribution Width 13.3 Platelet Count 183 Mean Platelet Volume 10.7 H Neutrophils % 81.1 H Lymphocytes % 9.0 L Monocytes % 8.9 Eosinophils % 0.3 Basophils % 0.2 Nucleated Red Blood Cells % 0.0 Neutrophils # 8.9 H Lymphocytes # 1.0 Monocytes # 1.0 H Eosinophils # 0.0 Basophils # 0.0 Nucleated Red Blood Cells # 0.0 Sodium Level 137 Potassium Level 4.4 Chloride Level 98 Carbon Dioxide Level 26 Anion Gap 17 #H Blood Urea Nitrogen 10 Creatinine 0.63 Glucose Level 139 # Calcium Level 9.0 Medications Medications Current Medications Sodium Chloride (NS) 1,000 ml @ 80 mls/hr [id number] IV ; Start 01/01/17 at 21:49 Acetaminophen (Tylenol Liquid) 650 mg Q6H PRN PO PAIN LEVEL 1-3 OR FEVER; Start 01/01/17 at 22:00 Acetaminophen (Tylenol Supp) 650 mg Q4H PRN [place] PAIN LEVEL 1-3 OR FEVER; Start 01/01/17 at 22:00 Hydromorphone HCl (Dilaudid) 0.5 mg Q4H PRN IV PAIN LEVEL 7-10 Last administered on 01/02/17t 19:56; Admin Dose 0.5 MG; Start 01/01/17 at 22:00 Pantoprazole (Protonix Iv) 40 mg DAILY@06 IV Last administered on 01/03/17 05: 52; Admin Dose 40 MG; Start 01/02/17 at 06:00 Acetaminophen/ Hydrocodone Bitart ([place] (5/325)) 1 tab Q4H PRN PO PAIN LEVEL 1 -5 Last administered on 01/03/17 07:37; Admin Dose 1 TAB; Start 01/02/17 at 00: 00 Hydromorphone HCl (Dilaudid) 0.2 mg Q1H PRN IV BREAKTHROUGH PAIN; Start at 00:00 Ondansetron HCl (Zofran Inj) 4 mg Q6H PRN IV NAUSEA AND/OR VOMITING Last administered on 01/03/17 08:00; Admin Dose 4 MG; Start 01/02/17 at 00:00 Naloxone HCl 0.2 mg 0.2 mg Q2M PRN IV RR 8 BREATHS/MIN OR LESS; Start 01/02/17 at 00:00 Potassium Chloride/Dextrose/ Sod Cl (D5-NS + KCl 20 Meq) 1,000 ml @ 100 mls/hr Q10H IV Last administered on 01/03/17 11:55; Admin Dose 100 MLS/HR; Start 01/02 at 00:00 Neomycin/ Polymyxin/ Bacitracin 1 applic 1 applic Q12 TOP Last administered on 01/03/17 08:12; Admin Dose 1 APPLIC; Start 01/02/17 at 09:00 Levetiracetam (Keppra 500 Mg/ 100ml (Pmx)) 100 ml @ 400 mls/hr Q12 IVPB Last administered on 01/03/17 08:16; Admin Dose 400 MLS/HR; Start 01/02/17 at 09:00 Donepezil HCl (Aricept) 10 mg DAILY PO Last administered on 01/03/17 08:11; Admin Dose 10 MG; Start 01/02/17 at 09:00 Ergocalciferol (Drisdol) 50,000 unit Q30D PO Last administered on 01/02/17 08: 57; Admin Dose 50,000 UNIT; Start 01/02/17 at 09:00 Escitalopram Oxalate (Lexapro) 5 mg DAILY PO Last administered on 01/03/17 08: 12; Admin Dose 5 MG; Start 01/02/17 at 09:00 Oxcarbazepine (Trileptal) 600 mg BID PO Last administered on 01/03/17 08:12; Admin Dose 600 MG; Start 01/02/17 at 09:00 Valsartan (Diovan) 160 mg DAILY PO Last administered on 01/03/17 08:12; Admin Dose 160 MG; Start 01/02/17 at 09:00 Calcium/Vitamin D (Oyster Shell/ Vit-D (250/125)) 1 tab BID PO Last administered on 01/03/17 08:12; Admin Dose 1 TAB; Start 01/02/17 at 09:00 Atorvastatin Calcium (Lipitor) 20 mg DAILY@21 PO Last administered on 21:42; Admin Dose 20 MG; Start 01/02/17 at 21:00 Hydralazine HCl (Apresoline) 10 mg Q6 PRN IV keep sbp < 160 Last administered on 01/02/17 00:28; Admin Dose 10 MG; Start 01/02/17 at 00:30 KATJA BRADLEY MD Jan 03, 2017 19:12
[2017-01-03] MEDS: ATORVASTATIN 20 MG TAB PO SCH (20:27)
[2017-01-04] VITALS (11 sets, daily range): BP systolic 91–168; BP diastolic 47–79; PULSE 56–75; RESP 16–21
[2017-01-04 05:12] LABS: BASOPHILS % 0.4 % (0.0-2.0); EOSINOPHILS # 0.2 10^3/ul (0.0-0.5); EOSINOPHILS % 1.9 % (0.0-7.0); HEMATOCRIT 31.4 % (37.0-47.0); HEMOGLOBIN 10.2 g/dl (12.0-16.0); LYMPHOCYTES # 1.1 10^3/ul (0.8-2.9); MEAN CORPUSCULAR HEMOGLOBIN 29.8 pg (29.0-33.0); MEAN CORPUSCULAR HGB CONC 32.5 g/dl (32.0-37.0); MEAN CORPUSCULAR VOLUME 91.8 fl (82.0-101.0); MEAN PLATELET VOLUME 10.6 fl (7.4-10.4); MONOCYTE # 0.8 10^3/ul (0.3-0.9); MONOCYTES % 9.8 % (0.0-11.0); NEUTROPHIL # 5.8 10^3/ul (1.6-7.5); NEUTROPHILS % 73.6 % (39.0-77.0); PLATELET COUNT 187 10^3/UL (140-415); RED BLOOD COUNT 3.42 10^6/ul (4.20-5.40); RED CELL DISTRIBUTION WIDTH 13.2 % (11.5-14.5); WHITE BLOOD COUNT 7.9 10^3/ul (4.8-10.8)
[2017-01-04 05:37] LABS: CALCIUM 8.7 mg/dl (8.4-10.2); CREATININE 0.65 mg/dl (0.44-1.00); POTASSIUM 4.3 mmol/L (3.5-5.1)
[2017-01-04] MEDS: PANTOPRAZOLE 40 MG INJ IV SCH (05:38)
[2017-01-04 06:34] LABS: ADD SCAN DIFF NO
[2017-01-04] MEDS: DONEPEZIL 10 MG TAB PO SCH (09:35)
[2017-01-04] MEDS: ESCITALOPRAM 10 MG TAB PO SCH (09:35)
[2017-01-04] MEDS: LEVETIRACETAM 500 MG (PMX) 100 ML IVPB SCH (09:35)
[2017-01-04] MEDS: CALCIUM/VITAMIN D (250/125) TAB PO SCH ×2 (09:35→21:05)
[2017-01-04] MEDS: OXCARBAZEPINE 300 MG TAB PO SCH ×2 (09:35→21:05)
[2017-01-04] MEDS: D5-NS + KCL 20 MEQ 1,000 ML IV SCH (09:35)
[2017-01-04] MEDS: NEOMYC/POLYMYX/BACIT 30 GM OINT TOP SCH ×2 (09:35→23:12)
[2017-01-04] MEDS: VALSARTAN 160 MG TAB PO SCH (09:36)
[2017-01-04] MEDS: hydrALAzine 20 MG INJ IV PRN (12:42)
--- NOTE | 2017-01-04 14:30 | PN ---
Date/Time of Note Date/Time of Note DATE: 01/04/17 TIME: 14:28 Assessment/Plan VTE Prophylaxis VTE Prophylaxis Intervention: SCD's Lines/Catheters IV Catheter Type (from Nrs): Peripheral IV Urinary Cath still in place: Yes Reason Cath still needed: urinary retention, other (indicate) (strcit I/o ) Assessment/Plan Assessment/Plan 1: acute on chronic subural hematoma - initial CT scan showed chronic left cerebral convexity subdural hematoma measuring 9.6 x 1.6 x 9.1 cm in AP, transverse, and craniocaudal dimensions. Small regions of acute hemorrhage are present within the chronic fluid. Multiple septations are also present. Midline shift to the right measuring 0.7 cm. Pt s/p left frontal and parietal burhole craniectomies for evacuation of subdural hematoma , has less right sided weakness now. - f/u Neurosurgery rec's, monitor left sided head drain - Current time keep the patient n.p.o., f/u ST eval - continue Neuro check's, monitor bp #2 hypertension - again - current time we will keep the patient's blood pressure when in the 140s-160 systolic range await further recommendations from neurosurgery regarding blood pressure management. #3 Alzheimer's: Continue donepezil #4 depression: Continue SSRI #5 DVT GI prophylaxis: SCDs, Protonix Further treatment strategy will be implemented as per the clinical course will need SNF placement for d/c planning Subjective 24 Hr Interval Summary Free Text/Dictation transferred to telemetry floor, doing ok, BP stable, afebrile Exam/Review of Systems Vital Signs Vitals Vital Signs Date Time Temp Pulse Resp B/P Pulse Ox O2 Delivery O2 Flow Rate FiO2 01/04/17 08:08 98.2 67 20 166/72 98 01/04/17 05:00 Nasal Cannula 01/03/17 15:00 2.0 Intake and Output 01/03/17 01/03/17 01/04/17 15:00 23:00 07:00 Intake Total 1110 ml 1000 ml 1000 ml Output Total 554 ml 804 ml 945 ml Balance 556 ml 196 ml 55 ml Exam General: Patient is lying in bed in no acute distress, ST and family at bedside HEENT: Atraumatic, normocephalic. The pupils are equal, round and reactive. Extraocular motor are intact, left sided head drain in place Neck: Supple with full range of motion. No rigidity or meningismus Lungs: Clear to auscultation bilaterally no crackles rales or wheezing Heart: Normal S1-S2, Regular rhythm and rate. No murmur, S3, or S4 Abdomen: Soft , nontender, nondistended , bowel sounds are present. No guarding no rebound tenderness , No masses or organomegaly. No costovertebral temporal angle mass Extremities: less weakness of the right upper extremity when compared to the left, equals strength bilateral lower extremities Neurologic: Normal mental status, mild slurring of speech, cranial nerves II through XII are intact, motor and sensory are intact, no focal weakness Results Result Diagram: 01/04/1742401/04/17424 Results 24 hrs Laboratory Tests Test 01/04/17 04:25 White Blood Count 7.9 # Red Blood Count 3.42 L Hemoglobin 10.2 L Hematocrit 31.4 L Mean Corpuscular Volume 91.8 Mean Corpuscular Hemoglobin 29.8 Mean Corpuscular Hemoglobin Concent 32.5 Red Cell Distribution Width 13.2 Platelet Count 187 Mean Platelet Volume 10.6 H Neutrophils % 73.6 Lymphocytes % 14.0 L Monocytes % 9.8 Eosinophils % 1.9 Basophils % 0.4 Nucleated Red Blood Cells % 0.0 Neutrophils # 5.8 Lymphocytes # 1.1 Monocytes # 0.8 Eosinophils # 0.2 Basophils # 0.0 Nucleated Red Blood Cells # 0.0 Sodium Level 139 Potassium Level 4.3 Chloride Level 98 Carbon Dioxide Level 27 Anion Gap 18 H Blood Urea Nitrogen 9 Creatinine 0.65 Glucose Level 106 Calcium Level 8.7 Medications Medications Current Medications Acetaminophen (Tylenol Liquid) 650 mg Q6H PRN PO PAIN LEVEL 1-3 OR FEVER; Start 01/01/17 at 22:00 Acetaminophen (Tylenol Supp) 650 mg Q4H PRN [place] PAIN LEVEL 1-3 OR FEVER; Start 01/01/17 at 22:00 Hydromorphone HCl (Dilaudid) 0.5 mg Q4H PRN IV PAIN LEVEL 7-10 Last administered on 01/02/17 19:56; Admin Dose 0.5 MG; Start 01/01/17 at 22:00 Pantoprazole (Protonix Iv) 40 mg DAILY@06 IV Last administered on 01/04/17 05: 38; Admin Dose 40 MG; Start 01/02/17 at 06:00 Acetaminophen/ Hydrocodone Bitart ([place] (5/325)) 1 tab Q4H PRN PO PAIN LEVEL 1 -5 Last administered on 01/03/17 20:37; Admin Dose 1 TAB; Start 01/02/17 at 00: 00 Hydromorphone HCl (Dilaudid) 0.2 mg Q1H PRN IV BREAKTHROUGH PAIN; Start at 00:00 Ondansetron HCl (Zofran Inj) 4 mg Q6H PRN IV NAUSEA AND/OR VOMITING Last administered on 01/03/17 08:00; Admin Dose 4 MG; Start 01/02/17 at 00:00 Naloxone HCl 0.2 mg 0.2 mg Q2M PRN IV RR 8 BREATHS/MIN OR LESS; Start 01/02/17 at 00:00 Potassium Chloride/Dextrose/ Sod Cl (D5-NS + KCl 20 Meq) 1,000 ml @ 100 mls/hr Q10H IV Last administered on 01/04/17 09:35; Admin Dose 100 MLS/HR; Start 01/02 at 00:00 Neomycin/ Polymyxin/ Bacitracin 1 applic 1 applic Q12 TOP Last administered on 01/04/17 09:35; Admin Dose 1 APPLIC; Start 01/02/17 at 09:00 Levetiracetam (Keppra 500 Mg/ 100ml (Pmx)) 100 ml @ 400 mls/hr Q12 IVPB Last administered on 01/04/17 09:35; Admin Dose 400 MLS/HR; Start 01/02/17 at 09:00 Donepezil HCl (Aricept) 10 mg DAILY PO Last administered on 01/04/17 09:35; Admin Dose 10 MG; Start 01/02/17 at 09:00 Ergocalciferol (Drisdol) 50,000 unit Q30D PO Last administered on 01/02/17 08: 57; Admin Dose 50,000 UNIT; Start 01/02/17 at 09:00 Escitalopram Oxalate (Lexapro) 5 mg DAILY PO Last administered on 01/04/17 09: 35; Admin Dose 5 MG; Start 01/02/17 at 09:00 Oxcarbazepine (Trileptal) 600 mg BID PO Last administered on 01/04/17 09:35; Admin Dose 600 MG; Start 01/02/17 at 09:00 Valsartan (Diovan) 160 mg DAILY PO Last administered on 01/04/17 09:36; Admin Dose 160 MG; Start 01/02/17 at 09:00 Calcium/Vitamin D (Oyster Shell/ Vit-D (250/125)) 1 tab BID PO Last administered on 01/04/17 09:35; Admin Dose 1 TAB; Start 01/02/17 at 09:00 Atorvastatin Calcium (Lipitor) 20 mg DAILY@21 PO Last administered on 01/03/17 20:27; Admin Dose 20 MG; Start 01/02/17 at 21:00 Hydralazine HCl (Apresoline) 10 mg Q6 PRN IV keep sbp < 160 Last administered on 01/04/17 12:42; Admin Dose 10 MG; Start 01/02/17 at 00:30 KATJA BRADLEY MD Jan 04, 2017 14:30
[2017-01-04] MEDS: HYDROCODONE/APAP (5/325) TAB PO PRN (16:17)
[2017-01-04] MEDS: LEVETIRACETAM 500 MG TAB PO SCH (21:05)
[2017-01-04] MEDS: ATORVASTATIN 20 MG TAB PO SCH (21:05)
[2017-01-05 00:06] VITALS: BP 123/70; RESP 18
[2017-01-05 04:13] VITALS: BP 136/64; RESP 20
[2017-01-05] MEDS: PANTOPRAZOLE 40 MG INJ IV SCH (05:55)
[2017-01-05 07:24] LABS: BASOPHILS % 0.4 % (0.0-2.0); EOSINOPHILS # 0.2 10^3/ul (0.0-0.5); EOSINOPHILS % 2.9 % (0.0-7.0); HEMATOCRIT 31.9 % (37.0-47.0); HEMOGLOBIN 10.5 g/dl (12.0-16.0); LYMPHOCYTES # 1.1 10^3/ul (0.8-2.9); LYMPHOCYTES % 13.2 % (15.0-51.0); MEAN CORPUSCULAR HEMOGLOBIN 29.8 pg (29.0-33.0); MEAN CORPUSCULAR HGB CONC 32.9 g/dl (32.0-37.0); MEAN CORPUSCULAR VOLUME 90.6 fl (82.0-101.0); MEAN PLATELET VOLUME 10.4 fl (7.4-10.4); MONOCYTE # 0.6 10^3/ul (0.3-0.9); MONOCYTES % 7.5 % (0.0-11.0); NEUTROPHIL # 6.4 10^3/ul (1.6-7.5); NEUTROPHILS % 75.8 % (39.0-77.0); PLATELET COUNT 193 10^3/UL (140-415); RED BLOOD COUNT 3.52 10^6/ul (4.20-5.40); RED CELL DISTRIBUTION WIDTH 13.2 % (11.5-14.5); WHITE BLOOD COUNT 8.4 10^3/ul (4.8-10.8)
[2017-01-05 07:47] VITALS: BP 150/65; RESP 20
[2017-01-05 08:02] LABS: CALCIUM 9.2 mg/dl (8.4-10.2); CREATININE 0.65 mg/dl (0.44-1.00)
[2017-01-05] MEDS: ESCITALOPRAM 10 MG TAB PO SCH (09:34)
[2017-01-05] MEDS: DONEPEZIL 10 MG TAB PO SCH (09:34)
[2017-01-05] MEDS: CALCIUM/VITAMIN D (250/125) TAB PO SCH (09:34)
[2017-01-05] MEDS: NEOMYC/POLYMYX/BACIT 30 GM OINT TOP SCH (09:35)
[2017-01-05] MEDS: LEVETIRACETAM 500 MG TAB PO SCH (09:35)
[2017-01-05] MEDS: VALSARTAN 160 MG TAB PO SCH (09:35)
[2017-01-05] MEDS: OXCARBAZEPINE 300 MG TAB PO SCH (09:35)
[2017-01-05 11:51] VITALS: BP 167/76; RESP 20
[2017-01-05 16:05] VITALS: BP 150/66; RESP 20
--- NOTE | 2017-01-05 16:58 | DS ---
Date/Time of Note Date/Time of Note DATE: 01/05/17 TIME: 16:52 Discharge Summary Admission/Discharge Info Admit Date/Time Jan 01, 2017 at 20:08 Discharge Date/Time 01/05/17 Discharge Diagnosis Subdural hematoma Patient Condition: Stable Consults Dr. Sha Giraldo Procedures Evacuation craniotomy for subdural Hx of Present Illness Hospital course: 68-year-old female admitted with right sided weakness, slurred speech Patient is a 76-year-old female with previous stroke and hypertension who presents with weakness of the right arm. The patient was brought in by ambulance. She could not lift her right arm yesterday while eating. Today the weakness was worse. She had a fall on November 17 and had a subdural hemorrhage at that time. She has no pain. The family does say that she has slurred speech. She had no new falls. She does have difficulty walking. She does not take blood thinning medicines at this time. Allergies: NKDA Medications: See SEP Hospital Course A/P: 68-year-old female being admitted to the ICU floor for: 1: acute on chronic subural hematoma - initial CT scan showed chronic left cerebral convexity subdural hematoma measuring 9.6 x 1.6 x 9.1 cm in AP, transverse, and craniocaudal dimensions. Small regions of acute hemorrhage are present within the chronic fluid. Multiple septations are also present. Midline shift to the right measuring 0.7 cm. Pt s/p left frontal and parietal burhole craniectomies for evacuation of subdural hematoma early this AM, has less right sided weakness now. -Underwent evacuation in the craniotomy under the care of Dr. Hosea Giraldo. Please see operative report for complete details. Follow-up CT shows less midline shift. No neurological deficits. Drain is removed. She is stable and at her baseline according to daughter. Stable and fit for discharge. 2 hypertension -stable 3 Alzheimer's: Continue donepezil. Needs advanced care planning reevaluated. Consider DNR. 4 depression: Continue SSRI 5. Mechanical fall back in November. 6. Chronic seizure disorder continue Trileptal. Neurology [facility] [facility] Dr. [place] 7. Chronic depression 8. Prediabetes Diet regular Activity no driving DME none CODE STATUS full Condition stable Allergies no known drug allergies Pending tests none Reason for admission right-sided weakness Barriers to discharge none Functional status awake alert, oriented. She and daughter agree to palliative care New medications Tylenol as needed for pain Colace as needed for constipation Home Meds Reported Medications Escitalopram Oxalate* (Escitalopram Oxalate*) 5 Mg Tablet, 5 MG PO DAILY, #30 TAB 01/01/17 Valsartan* (Diovan*) 160 Mg Tablet, 160 MG PO DAILY, TAB 01/01/17 Calcium Carbonate/Vitamin D3 ([place] SHELL CALCIUM TABLET) 1 Each Tablet, 1 EACH PO BID, TAB 01/01/17 Oxcarbazepine* (Oxcarbazepine*) 600 Mg Tablet, 600 MG PO BID, TAB 01/01/17 Oxcarbazepine* (Oxcarbazepine*) 300 Mg Tablet, 300 MG PO PRN Y for NEEDED, TAB 01/01/17 Donepezil* (Donepezil*) 10 Mg Tablet, 10 MG PO DAILY, #30 TAB 01/01/17 Simvastatin* (Zocor*) 40 Mg Tablet, 40 MG PO DAILY, #30 TAB 01/01/17 Ergocalciferol (Vitamin D2) (VITAMIN D2) 50,000 Unit Capsule, 85589 UNIT PO Q30D , CAP 01/01/17 Discontinued Reported Medications Rosuvastatin Calcium* (Crestor*) 10 Mg Tablet 05/07/10 Atenolol* (Atenolol*) 25 Mg Tablet 05/07/10 Follow-up Plan Appointment primary [address] Sha Giraldo in 1 week Appointment regular neurologist 2 weeks Primary Care Provider Sandra Argueta Time spent on discharge: < 30 minutes Pending Labs Laboratory Tests Test 01/05/17 07:08 White Blood Count 8.410^3/ul (4.8-10.8) Red Blood Count 3.5210^6/ul (4.20-5.40) Hemoglobin 10.5g/dl (12.0-16.0) Hematocrit 31.9% (37.0-47.0) Mean Corpuscular Volume 90.6fl (82.0-101.0) Mean Corpuscular Hemoglobin 29.8pg (29.0-33.0) Mean Corpuscular Hemoglobin Concent 32.9g/dl (32.0-37.0) Red Cell Distribution Width 13.2% (11.5-14.5) Platelet Count 20145^3/UL (140-415) Mean Platelet Volume 10.4fl (7.4-10.4) Neutrophils % 75.8% (39.0-77.0) Lymphocytes % 13.2% (15.0-51.0) Monocytes % 7.5% (0.0-11.0) Eosinophils % 2.9% (0.0-7.0) Basophils % 0.4% (0.0-2.0) Nucleated Red Blood Cells % 0.0/100WBC (0.0-0.0) Neutrophils # 6.410^3/ul (1.6-7.5) Lymphocytes # 1.110^3/ul (0.8-2.9) Monocytes # 0.610^3/ul (0.3-0.9) Eosinophils # 0.210^3/ul (0.0-0.5) Basophils # 0.010^3/ul (0.0-0.1) Nucleated Red Blood Cells # 0.010^3/ul (0.0-0.0) Sodium Level 135mmol/L (135-144) Potassium Level 4.0mmol/L (3.5-5.1) Chloride Level 95mmol/L (97-110) Carbon Dioxide Level 29mmol/L (21-31) Anion Gap 15 (8-16) Blood Urea Nitrogen 10mg/dl (7-20) Creatinine 0.65mg/dl (0.44-1.00) Glucose Level 98mg/dl (70-220) Calcium Level 9.2mg/dl (8.4-10.2) NICOLAS WILKERSON MD Jan 05, 2017 16:57
--- NOTE | 2017-01-05 16:58 | PDOCDIS ---
Discharge Instructions DIAGNOSIS Discharge Diagnosis Subdural hematoma CONDITION Patient Condition: Stable HOME CARE INSTRUCTIONS: Special Diet: MECHANICAL SOFT, CARDIAC DIET ACTIVITY: Activity Restrictions: Slowly Increase Activity Do not Drive FOLLOW UP/APPOINTMENTS Follow-up Plan PCP 1wk Dr Hosea Giraldo 1wk NICOLAS WILKERSON MD Jan 05, 2017 16:58
[2017-01-05] MEDS ORDERED: Acetaminophen Liquid PO (17:00)
[2017-01-05] MEDS ORDERED: DOCU-216 PO (17:00)
--- NOTE | 2017-01-05 21:08 | CONS ---
Date/Time of Note Date/Time of Note DATE: 01/05/17 TIME: 21:03 Assessment/Plan Assessment/Plan Additional Assessment/Plan Inpatient consultation Date of Consultation: 01/01/2017 Requesting physician: Omari Macdonald M.D. with emergency department Consulting service: Neurosurgery THE HOSPITAL DICTATION SYSTEM HAS BEEN NON-OPERATIONAL AND A NOTE COULD NOT BE DICTATED TILL NOW. 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 The patient did not have any loss of consciousness with these falls according to the family members. However the patient's balance and gait has deteriorated especially over the past day or so and the patient has developed weakness of her upper and lower extremities on the right side. The patient is having a difficult time feeding herself with her right upper extremity. The patient does have some dementia baseline but is able to do basic activities of daily living. The patient's last generalized seizure occurred several months ago according to the patient's 2 daughters who are at bedside. Past medical history: Please see above Past surgical history: Appendectomy?, Abdominal hernia repair Allergies: No drug allergies Family history: Noncontributory Review of systems: Please see above for pertinent positives or negatives. The patient denies shortness of breath, chest pain or heartburn. Physical examination: The patient is seen at bedside next to her 2 daughters. She is awake and alert. She is oriented to person, first and last name only and the family tells me that this is her baseline with some dementia. Her pupils are 3 to 2 mm reactive bilaterally. Her face is symmetric. Tongue is midline. Her language is fluent in [place]. Motor strength is 5 minus out of 5 left upper and lower extremity proximally and distally. Motor strength on the right upper extremity is 3+ out of 5 proximally and distally and 4 minus out of 5 on the right lower extremity proximally and distally. Sensation to light touch is grossly symmetric bilateral upper and lower extremities. Deep tendon reflexes are 1+ bilateral upper and lower extremities. Gait testing has been deferred as the patient is having a difficult time ambulating. Imaging: The patient has a CT of the brain without contrast that shows a large extra-axial fluid collection over the left frontal parietotemporal convexity that is consistent with a chronic subdural hematoma with a small acute component. The hematoma does cause some [id number] midline shift. Basal cisterns are open. There is no evidence of hydrocephalus. Assessment plan: Is an elderly female with new onset symptoms of right-sided hemiparesis resulting in difficulty doing basic activities of daily living and ambulation over the past day or so. The symptoms can be explained by the patient's acute on chronic left-sided supratentorial subdural hematoma. The patient is not receiving any anticoagulation or antiplatelet agent treatment according to the daughters. The subdural hematoma is most likely related to her falls and older age. I have discussed the various treatment options at this point in great detail with the patient and her two daughters at bedside. The options include observation versus surgical evacuation of the subdural hematoma. I have explained that given the patient's right sided hemiparesis usually the only way to help improve and prevent further deterioration of her neurologic function would be to proceed with surgical decompression. However the choice is certainly the patient's and her 2 daughters'. Given the patient' s pre-existing history of seizures she is also increased risk of developing more seizures in light of the subdural hematoma. Even with the operation the patient would still be at increased risk of developing further seizures in the perioperative period." I would Recommend that the patient have another seizure medication such as Keppra added during the perioperative period. It is possible that even with surgery, the patient may have recurrent subdural hematoma that would require further evacuation. I have also discussed the risks and benefits of the above operation with the risks including bleeding, infection, weakness, paralysis, numbness, difficulty with speech, comatose state , difficulty with ambulation, cerebrospinal fluid leak, failure of improvement of symptoms, need for further surgeries, and those risks associated with surgery and general anesthesia including deep venous thrombosis, pulmonary embolism, pneumonia, heart attack, stroke, and . The patient and her family fully understand the above discussion and wished to proceed with the surgery as soon as possible. We will try to accommodate the patient as best as we can. LAURA CONDE MD Jan 05, 2017 21:08
--- NOTE | 2017-01-05 21:30 | OPR ---
Date/Time of Note Date/Time of Note DATE: 01/05/17 TIME: 21:26 Operative Report Free Text/Dictation Operative report The hospital dictation system has been nonoperational and the operative report could not be dictated until now. Date of operation: 01/01/2017 Operating surgeon: Sha Conde M.D. Preoperative diagnosis: Left frontoparietal temporal acute on chronic subdural hematoma Postoperative diagnosis: Same as above Operation performed: Left frontal and parietal bur hole craniectomies for evacuation of subdural hematoma Indication for procedure: Please see inpatient consultation note during the same hospitalization for a full set of indications. Description of operative procedure: The patient was brought to the operating room and placed supine on the operating table. After general anesthesia was obtained the patient's had was turned towards the right exposing her left mauro- scalp. 2 small linear incisions were marked along the left superior temporal line, one just behind the hairline and the other one closer to the left parietal boss. A longer curvilinear incision along the left superior temporal line going down towards the tragus was also marked in case a full craniotomy would be required. A small strip of hair was shaven. After the scalp was prepped and draped and a central fashion, local anesthetic was infiltrated into the marked incisions. The incisions were then cut down to the level of the skull. Self-retaining retractors were placed. The shell mold bonding machine operator drill was utilized to create a adela hole over the left frontal and left parietal areas down to the level of the dura. The dura that was exposed was then coagulated. An 11 blade was used to incise the dura in a semi-cruciate fashion. The dural leaflets were then coagulated and shrunken further back. As soon as the posterior exposed dura over the bur hole was opened a gush of fluid that looked like motor oil consistent with chronic subdural hematoma was seen, not under very high pressure. This fluid was followed up with red blood consistent with acute subdural hematoma. However not much fluid was seen coming out from the more anterior bur hole. Therefore a second bur hole just inferior to the anterior bur hole was made within the same anterior incision was made down to the level of the dura. The dura here was coagulated and opened in a semi- cruciate fashion. Some more chronic subdural hematoma was able to be evacuated from this anterio-inferior bur hole. A Red Abe feeding tube was inserted into the subdural space and the subdural space was copiously irrigated with antibiotic solution until the subdural fluid became almost fully clear. The underlying brain tissue became completely pulsatile and expanded outward almost eliminating the previous subdural space. No active bleeding was noted. A Bactiseal ventriculostomy catheter was softly inserted into the subdural space from the posterior bur hole and the other end of it was brought out of the skin away from the incision site to serve as a subdural drain. The incisions were then reapproximated at the level of the galea and dermis with interrupted sutures. The skin was reapproximated with simple running Rapide 3.0 sutures. A thin film of antibiotic ointment was placed over each of the incision sites. The left subdural drain catheter was secured to the skin with a suture and connected to a ventriculostomy drainage bag. The patient was then woken up, extubated and transferred to the intensive care unit in stable condition. The patient soon after started moving her upper and lower extremities equally. Estimate blood loss: 25 cc Blood products administered: None Type of anesthesia: General Incision: Left frontal and parietal Skin closure: Rapide 3.0 sutures Patient's condition: Stable Prognosis: Good Wound classification: Clean Specimen removed: None Preoperative Diagnosis left frontoparietal acute on chronic SDH Postoperative Diagnosis Same As Above Operation Performed Left Frontal and parietal burhole craniectomies for evacuation of subdural hematoma Surgeon: SHA CONDE MD Anesthesia: general Estimated Blood Loss: 10 - 50 ml's Specimens None Grafts/Implants None Complications: None SHA CONDE MD Jan 05, 2017 21:29
--- NOTE | 2017-01-05 21:39 | PN ---
Date/Time of Note Date/Time of Note DATE: 01/05/17 TIME: 21:36 Assessment/Plan VTE Prophylaxis VTE Prophylaxis Intervention: SCD's Lines/Catheters IV C[facility]ter Type (from [facility] Peripheral IV Assessment/Plan Assessment/Plan Progress note THE HOSPITAL DICTATION SYSTEM HAS BEEN NONOPERATIONAL AND A PROGRESS NOTE COULD NOT BE DICTATED UNTIL NOW. Date of note: January 03, 2017 The patient is now postop day 2. She has had complete resolution of her preoperative right sided hemiparesis. The patient and her family are very satisfied with her excellent improvement. She has been lying flat with the head of the bed at 0 except when eating per my instructions while she has had her left subdural drain in place. Initially the left subdural drain was putting out more blood tinged drainage but overnight it has become virtually clear that is more consistent with CSF. The patient's immediate postop head CT showed significant decompression of the left subdural space with only small amount of residual subdural hematoma and with marked improvement of left to right midline shift. I have now removed the patient's left subdural drain. A new CT of the head has been ordered and will be done today. The patient's left frontal and parietal incisions are clean dry and intact. The patient is tolerating by mouth intake well. The patient may be transferred out of the ICU to the surgical floor. The patient may be discharged home from a neurosurgery perspective tomorrow as long as she is otherwise stable. The patient will follow-up with my clinic in 2 -3 weeks. Her scalp sutures are absorbable. I have also answered any of the patient and her daughter's questions at bedside. LAURA CONDE MD Jan 05, 2017 21:39
[2017-01-06] MEDS ORDERED: PANTOPRAZOLE (EC) 40 MG TAB PO SCH (06:00)
[2017-01-06] MEDS ORDERED: DOCUSATE SODIUM 100 MG CAP PO SCH (21:00)
== END 2017-01-05 19:19 | disposition home or self-care (01) | DRG 25 ==
LOC: E/R 18:53 → ICU 20:08 → MS4 01-04 06:45
PROVIDERS: ADMIT Family Medicine; ATTEND Family Medicine
PROC: 009430Z Drainage of Intracranial Subdural Space with Drainage Device, Percutaneous Approach (ICD-10-PCS; principal; 2017-01-01 21:15)
DX: I62.01 Nontraumatic acute subdural hemorrhage (principal); G93.5 Compression of brain; G81.91 Hemiplegia, unspecified affecting right dominant side; I62.03 Nontraumatic chronic subdural hemorrhage; R47.81 Slurred speech; I10 Essential (primary) hypertension; G40.909 Epilepsy, unspecified, not intractable, without status epilepticus; G30.9 Alzheimer's disease, unspecified; F02.80 Dementia in other diseases classified elsewhere, unspecified severity, without behavioral disturbance, psychotic disturbance, mood disturbance, and anxiety; R73.03 Prediabetes; F32.9 Major depressive disorder, single episode, unspecified; Z91.81 History of falling; Z86.73 Personal history of transient ischemic attack (TIA), and cerebral infarction without residual deficits
CPT/HCPCS: 36415; 70450; 71010; 80048; 80053; 80307; 81003; 82962; 83036; 84484; 85025; 85610; 85730; 86850; 86900; 86901; 86920; 87081; 92610; 93005; 97162; C9113; J0360; J0690; J1100; J1170; J1644; J1953; J2250; J2405; J3010; J3480; J7030

== ENCOUNTER 2018-05-27 23:56 | Emergency (ER) | END 2018-05-28 02:54 | disposition home or self-care (01) ==